=== PATIENT | female | born 1980 | race Caucasian/White ===

== ENCOUNTER 2019-11-17 15:40 | Outpatient (CLI) | payer MEDICAID, SELFPAY ==
[2019-11-17 16:19] LABS: Basophils % 0.7 %; Eosinophils # 0.1 10^3/uL (0.0-0.8); Eosinophils % 1.6 %; Hematocrit 34.7 % (37.0-47.0); Hemoglobin 11.5 g/dL (11.5-15.3); Lymphocytes # 1.3 10^3/uL (0.8-4.8); Lymphocytes % 28.5 %; Mean Corpuscular HGB Conc 33.1 g/dL (30.0-36.0); Mean Corpuscular Hemoglobin 27.1 pg (28.0-34.0); Mean Corpuscular Volume 81.6 fL (81-99); Mean Platelet Volume 10.1 fL (7.4-10.4); Monocytes # 0.4 10^3/uL (0.2-0.9); Neutrophils # 2.7 10^3/uL (1.8-7.7); Nucleated Red Blood Cells % 0 %; Platelet Count 243 10^3/cmm (130-400); Red Blood Count 4.25 10^6/uL (4.1-5.3); Red Cell Distribution Width 12.5 % (12.1-15.1); White Blood Count 4.4 10^3/uL (4.0-10.0)
[2019-11-17 17:12] LABS: Alanine Aminotransferase 14 U/L (0-33); Albumin Level 4.5 g/dL (3.5-5.2); Alkaline Phosphatase 79 IU/L (35-105); Anion Gap 15.2 (5-19); Aspartate Amino Transferase 15 U/L (0-32); Blood Urea Nitrogen 12 mg/dL (6-20); Calcium 9.5 mg/dL (8.5-10.5); Carbon Dioxide 27 mmol/L (22-29); Chloride 100 mmol/L (98-107); Chol HDL Ratio 3.71 mg/dL (0.0-4.40); Cholesterol 152 mg/dL (0-200); Globulin 2.7 g/dL (1.3-4.6); Glomerular Filtration Rate 80.7 mL/min (90-130); Glucose 113 mg/dL (65-115); HDL Cholesterol 41 mg/dL (60-100); LDL Cholesterol Calculated 95 mg/dL (50-129); LDL HDL Ratio 2.32 RATIO (0.00-3.22); Osmolality Calculated 283 mOsm/kg (285-295); Potassium 4.2 mmol/L (3.5-5.1); Sodium 138 mmol/L (136-145); Total Bilirubin 0.2 mg/dL (0.15-1.2); Total Protein 7.2 g/dL (6.6-8.7); Triglycerides 78 mg/dL (0-150)
== END 2019-11-17 15:41 | disposition home or self-care (01) ==
LOC: LAB 15:43
PROVIDERS: PCP Family Medicine; Visit Provider Nurse Practitioner Family
DX: I10 Essential (primary) hypertension (principal)
CPT/HCPCS: 80053; 80061; 84443; 85025

== ENCOUNTER → 2019-11-18 10:45 | Outpatient (BNVA) | payer BC, MEDICAID, SELFPAY | PROVIDERS: Family Provider Family Medicine; PCP Family Medicine | DX: F33.1 Major depressive disorder, recurrent, moderate (principal) | CPT/HCPCS: 83036 ==

== ENCOUNTER 2022-05-12 18:41 | Emergency (ER) | payer BC, MEDICAID, SELFPAY ==
[2022-05-12 18:44] VITALS: BP 162/98; PULSE 116; RESP 18; TEMP 36.7; O2SAT 100; BMI 35.9
--- NOTE | 2022-05-12 18:54 | ED_ITS ---
HPI - General Adult General: Chief complaint: General Medical Stated complaint: tongue swelling numb Time Seen by Provider: 05/12/22 18:54 History of Present Illness: 41-year-old female comes in today for complaints of numbness of the tongue. Patient appears nontoxic. Patient is managing secretions well. No respiratory difficulty noted. Patient has a history of substance abuse disorder and hypertension and anxiety. Review of Systems ENMT: Reports: other (Numbness of tongue) Physical Exam Const: COMMON NORMALS: alert HENMT: COMMON NORMALS: normocephalic HEAD & SCALP: normocephalic MOUTH: Normal oral and palatal mucosa present Neck/C-Spine: COMMON NORMALS: no lymphadenopathy Resp: COMMON NORMALS: normal respiratory effort and clear to auscultation bilaterally AUSCULTATION: clear to auscultation bilaterally Cardio: COMMON NORMALS: regular rate RATE: regular rate Extremity: COMMON NORMALS: normal to inspection Neuro: SENSORIUM/ORIENTATION: Yes alert Skin: COMMON NORMALS: turgor normal GENERAL SKIN EXAM: turgor normal Course Vital Signs: Vital signs: Vital Signs Temperature 98.0 F 05/12/22 18:44 Pulse Rate 116 H 05/12/22 18:44 Respiratory Rate 18 05/12/22 18:44 Blood Pressure 162/98 05/12/22 18:44 Pulse Oximetry 100 05/12/22 18:44 Oxygen Delivery Me thod 05/12/22 18:44 [facility] [place] - General Adult Medical Decision Making 41-year-old female comes in today with complaints of numbness to the tongue. On exam no swelling is noted to the tongue. Patient manages secretions well. Posterior pharynx is normal. No obvious swelling or abnormality is noted to the mouth. Vital signs are normal. Differential diagnosis includes but not limited to allergic reaction, anxiety, angioedema. Exam notes no significant abnormalities. Patient manages secretions well. Lungs are clear to auscultation. I believe this is more psychogenic. We will go ahead and prescribe Benadryl to use as needed per patient's request. Recommend return to the ER for worsening symptoms or new concerns. Discharge Plan Discharge Patient Disposition: Home Clinical Impression: Paresthesia Condition: Stable Prescriptions: New diphenhydramine HCl 50 mg capsule 50 mg PO Q6H PRN (Reason: allergy symptoms) Qty: 30 0RF No Action lisinopril 20 mg tablet 20 mg PO DAILY bupropion HCl 75 mg tablet 75 mg PO DAILY Rx Instructions: administer 6 hours apart prazosin 2 mg capsule 2 mg PO DAILY olanzapine 10 mg tablet 20 mg PO DAILY hydroxyzine pamoate 50 mg capsule 50 mg PO TID PRN clonidine HCl 0.1 mg tablet 0.1 mg PO TID PRN hydrochlorothiazide 25 mg tablet 25 mg PO DAILY Qty: 30 0RF clindamycin HCl 300 mg capsule 600 mg PO Q6H 7 Days Qty: 56 0RF Discharge Orders: Discharge ED (Routine); Ordered 05/12/22 Ordered By: David Gómez Referrals: Mary Amos MD [Primary Care Provider] - Discharge Diet: Usual diet Discharge Activity: Increase activity as tolerated Activity Restrictions/Additional Instructions: Home and rest. Drink plenty of fluids. Use medication as directed. Follow-up with primary care for further instruction. Return to ED for worsening symptoms such as increased shortness of breath, fever greater than 100.4, difficulty swallowing. Coding Level of Care Code ED Sluice Tender for Abdoulaye Crockett
[2022-05-12 19:26] VITALS: PULSE 103; RESP 18
[2022-05-12] MEDS: diphenhydrAMINE 50 mg Capsule PO (19:34)
== END 2022-05-12 19:50 | disposition home or self-care (01) ==
PROVIDERS: Emergency Provider Nurse Practitioner Family; Family Provider Family Medicine; PCP Family Medicine
DX: R20.2 Paresthesia of skin (principal)
CPT/HCPCS: 99283; Q0163

== ENCOUNTER 2022-10-12 12:57 | Emergency (ER) | payer BC, MEDICAID, SELFPAY ==
[2022-10-12 13:08] VITALS: BP 181/109; PULSE 94; RESP 16; TEMP 36.7; O2SAT 100
--- NOTE | 2022-10-12 13:14 | ED_ITS ---
HPI - Headache General: Chief Complaint: Headache Stated Complaint: high bp, headache Time Seen by Provider: 10/12/22 13:14 History of Present Illness: Ms Vance is a 42-year-old lady presenting to the emergency department for headache. She reports history of migraines. Symptoms began last night and were subacute. Pain 9 out of 10 primarily in the top of her head and sharp in michelle ure. She notes nausea, vomiting, denies numbness or tingling or other focal neurologic symptoms. She does have photosensitivity. Reports location is somewhat different than typical migraines. She is at [facility] abuse including IV drug use. She does report a history of hypertension and has noted blood pressure higher over the past few weeks. No other specific changes in health, exacerbating, or alleviating factors identified. Onset (ago): hour(s) Onset description: gradually Severity: moderate Exacerbating factors: light and noise Review of Systems General: Reports: 10 or more systems reviewed and unremarkable except in HPI and below PFSH ED PFSH: Medical History (Updated 10/23/22 @ 08:56 by Roberto López MD) Migraine Social History (Updated 10/23/22 @ 08:56 by Roberto López MD) Substance/Drug Use: former Physical Exam Const: COMMON NORMALS: patient oriented x3 and alert GENERAL APPEARANCE: cooperative and well developed HENMT: COMMON NORMALS: normocephalic and atraumatic HEAD & SCALP: normocephalic and atraumatic THROAT: posterior oropharynx normal Eye: COMMON NORMALS: conjunctivae normal CONJUNCTIVA: Yes conjunctivae normal SCLERA: sclerae normal Neck/C-Spine: COMMON NORMALS: supple and no meningeal signs GENERAL: Yes trachea midline Resp: COMMON NORMALS: normal respiratory effort EFFORT & INSPECTION: Yes able to speak in complete sentences Cardio: COMMON NORMALS: regular rate and regular rhythm RATE: regular rate RHYTHM: regular rhythm GI: COMMON NORMALS: Soft to palpation PALPATION: Yes Soft to palpation and No Tenderness to palpation present (GI) Extremity: GENERAL: Yes normal exam except as noted and No edema Neuro: COMMON NORMALS: patient oriented x3, CN's II-XII intact bilaterally, moves all extremities, no focal motor deficits and no sensory deficits noted SENSORIUM/ORIENTATION: Yes alert and No Orientation impaired MENINGEAL SIGNS: Yes no meningeal signs Psych: COMMON NORMALS: mental status grossly normal and Normal thought process present THOUGHT PROCESS: Normal thought process present Course Vital Signs: Vital signs: Vital Signs Temperature 98.0 F 10/12/22 13:08 Pulse Rate 94 10/12/22 13:08 Respiratory Rate 16 10/12/22 13:08 Blood Pressure 165/100 10/12/22 16:13 Pulse Oximetry 100 10/12/22 13:08 Oxygen Delivery Me thod Room Air 10/12/22 13:08 MDM - Headache Medical Decision Making 42-year-old lady presenting with headache and high blood pressure. Patient does have a history of headaches. No focal neurologic deficits or meningeal signs. Patient is uncomfortable however nontoxic. Labs notable for mild leukocytosis. No significant derangement. Negative hCG. Patient is currently on menstrual cycle which likely explains hematuria. Initially only mild improvement with treatment and therefore CT is appropriate. CT demonstrates no acute intracranial pathology. With repeat/additional treatment patient has significant improvement near complete resolution of headache. Most likely etiology of symptoms is headache. The results of ED evaluation were discussed with the patient including prescriptions and/or symptomatic cares (if applicable) including appropriate and responsible use, followup plan, and return precautions. The patient verbalized understanding and felt safe for discharge. Medical Records I reviewed the patient's medical records. Lab Data I reviewed the patient's lab results. 10/12/22 13:30 10/12/22 13:[address] 10/12/22 14:17 IMPRESSION: No acute intracranial abnormality. Laboratory Results WBC 12.7 10^3/uL (4.0-10.0) H 10/12/22 13:30 RBC 4.84 10^6/uL (4.1-5.3) 10/12/22 13:30 Hgb 13.2 g/dL (11.5-15.3) 10/12/22 13:30 Hct 40.9 % (37.0-47.0) 10/12/22 13:30 MCV 84.5 fl (81-99) 10/12/22 13:30 MCH 27.3 pg (28.0-34.0) L 10/12/22 13:30 MCHC 32.3 g/dL (30.0-36.0) 10/12/22 13:30 RDW 13.6 % (12.1-15.1) 10/12/22 13:30 Plt Count 311 10^3/cmm (130-400) 10/12/22 13:30 MPV 8.9 fL (7.4-10.4) 10/12/22 13:30 Neut % (Auto) 91.2 % 10/12/22 13:30 Lymph % (Auto) 6.1 % 10/12/22 13:30 [place] % (Auto) 1.9 % 10/12/22 13:30 Eos % (Auto) 0.1 % 10/12/22 13:30 Baso % (Auto) 0.2 % 10/12/22 13:30 Neut # (Auto) 11.58 10^3/uL (1.8-7.7) H 10/12/22 13:30 Lymph # (Auto) 0.8 10^3/uL (0.8-4.8) 10/12/22 13:30 [place] # (Auto) 0.2 10^3/uL (0.2-0.9) 10/12/22 13:30 Eos # (Auto) 0.0 10^3/uL (0.0-0.8) 10/12/22 13:30 Baso # (Auto) 0.0 10^3/uL (0.0-0.1) 10/12/22 13:30 Nucleated RBC % (auto) 0 % 10/12/22 13: Nucleated RBCs # 0.0 /100WBC 10/12/22 13:30 Sodium 136 mmol/L (136-145) 10/12/22 13:30 Potassium 4.4 mmol/L (3.5-5.1) 10/12/22 13:30 Chloride 102 mmol/L (98-107) 10/12/22 13:30 Carbon Dioxide 25 mmol/L (22-29) 10/12/22 13:30 Anion Gap 13.4 (5-19) 10/12/22 13:30 BUN 12 mg/dL (6-20) 10/12/22 13:30 Creatinine 0.5 mg/dL (0.5-0.9) 10/12/22 13:30 GFR Calculation 136.6 mL/min (90-130) H 10/12/22 13:30 Glucose 125 mg/dL (65-115) H 10/12/22 13:30 Calculated Osmolality 283 mOsm/kg (285-295) L 10/12/22 13:30 Calcium 9.1 mg/dL (8.5-10.5) 10/12/22 13:30 Total Bilirubin 0.4 mg/dL (0.15-1.2) 10/12/22 13:30 AST 15 U/L (0-32) 10/12/22 13:30 ALT 11 U/L (0-33) 10/12/22 13:30 Alkaline Phosphatase 76 U/L (35-105) 10/12/22 13:30 Total Protein 7.6 g/dL (6.6-8.7) 10/12/22 13: Albumin 4.5 g/dL (3.5-5.2) 10/12/22 13: Globulin 3.1 g/dL (1.3-4.6) 10/12/22 13:30 HCG, Qual Negative (Negative) 10/12/22 13:30 Urine Color Red (Yellow) 10/12/22 15:06 Urine Appearance [place] (CLEAR) A 10/12/22 15:06 Urine pH 7 (5-7) 10/12/22 15:06 Ur Specific [place] 1.015 (1.005-1.030) 10/12/22 15:06 Urine Protein 2+ (Negative) H 10/12/22 15:06 Urine Glucose (UA) Trace (Normal) H 10/12/22 15:06 Urine Ketones Negative (Negative) 10/12/22 15:06 Urine Blood 4+ (Negative) H 10/12/22 15:06 Urine Nitrate Negative (Negative) 10/12/22 15:06 Urine Bilirubin Neg (Negative) 10/12/22 15:06 Urine Urobilinogen Norm mg/dL (Negative) 10/12/22 15:06 Ur Leukocyte Esterase Trace (Negative) H 10/12/22 15:06 Urine RBC >100 /hpf (0-2) H 10/12/22 15:06 Urine WBC 10-15 /hpf (0-5) H 10/12/22 15:06 Ur Squamous Epith Cells 0-4 /hpf (0-5) H 10/12/22 15:06 Amorphous Sediment Not Reportable 10/12/22 15:06 Urine Bacteria None /hpf (NONE) 10/12/22 15:06 Urine Mucus 1+ /hpf 10/12/22 15:06 Discharge Plan Discharge Patient Disposition: Home Clinical Impression: Headache Condition: Stable Prescriptions: New Reglan 10 mg tablet 10 mg PO Q6H PRN (Reason: headache) Qty: 20 0RF No Action prazosin 2 mg capsule 4 mg PO BEDTIME naltrexone 50 mg Tablet 25 mg PO BID sertraline 100 mg Tablet 100 mg PO DAILY hydroxyzine pamoate 50 mg Capsule 50 - 100 mg PO BEDTIME PRN (Reason: Muscle Spasm) baclofen 10 mg Tablet 10 mg PO TID PRN (Reason: Spasms) lisinopril 10 mg Tablet 20 mg PO QAM losartan 25 mg Tablet 25 mg PO DAILY Remeron 15 mg Tablet 15 mg PO BEDTIME Discharge Orders: Discharge ED (Routine); Ordered 10/12/22 Ordered By: Roberto López Discharge Diet: Usual diet Discharge Activity: Resume usual activity Patient Instructions: Migraine Headache (ED), Acute Headache (ED) Activity Restrictions/Additional Instructions: Thank you for visiting the emergency department. You were seen and evaluated for headache. The exact cause of your symptoms is unclear but likely related to underlying headache disorder. We are pleased that you had improvement in the emergency department. I will prescribe Reglan which you can take with Benadryl, Tylenol and/or ibuprofen. Please also ensure that you are staying hydrated. For Tylenol and ibuprofen or other NSAIDs please do not exceed the daily recommended dosage as listed on the packaging and please keep in mind that many namebrand medications contain the same active ingredients. Please avoid these medications if previously instructed to do so by another physician due to other underlying medical condition. Please follow-up with a primary care provider. Return to the emergency department for fevers, neck stiffness, uncontrolled pain, any new neurologic symptoms, or anything else that you are concerned about and feel needs Emergency Department evaluation. Coding Level of Care Code ED Valve Mechanic for Abdoulaye Crockett
[2022-10-12] MEDS: sodium chloride 0.9% 1,000 ML 999 ML IV (13:45)
[2022-10-12] MEDS: diphenhydrAMINE 50 mg/mL SDV 1mL 25 MG IVP (13:45)
[2022-10-12] MEDS: metoclopramide 5 mg/mL SDV 2 mL 10 MG IVP (13:48)
[2022-10-12] MEDS: ketorolac 30 mg/mL INJ 15 MG IVP (13:49)
[2022-10-12 13:58] LABS: Basophils % 0.2 %; Eosinophils % 0.1 %; Hematocrit 40.9 % (37.0-47.0); Hemoglobin 13.2 g/dL (11.5-15.3); Lymphocytes # 0.8 10^3/uL (0.8-4.8); Lymphocytes % 6.1 %; Mean Corpuscular HGB Conc 32.3 g/dL (30.0-36.0); Mean Corpuscular Hemoglobin 27.3 pg (28.0-34.0); Mean Corpuscular Volume 84.5 fl (81-99); Mean Platelet Volume 8.9 fL (7.4-10.4); Monocytes # 0.2 10^3/uL (0.2-0.9); Monocytes % 1.9 %; Neutrophils # 11.58 10^3/uL (1.8-7.7); Neutrophils % 91.2 %; Nucleated Red Blood Cells % 0 %; Platelet Count 311 10^3/cmm (130-400); Red Blood Count 4.84 10^6/uL (4.1-5.3); Red Cell Distribution Width 13.6 % (12.1-15.1); White Blood Count 12.7 10^3/uL (4.0-10.0)
[2022-10-12 14:13] LABS: Alanine Aminotransferase 11 U/L (0-33); Albumin Level 4.5 g/dL (3.5-5.2); Alkaline Phosphatase 76 U/L (35-105); Anion Gap 13.4 (5-19); Aspartate Amino Transferase 15 U/L (0-32); Blood Urea Nitrogen 12 mg/dL (6-20); Calcium 9.1 mg/dL (8.5-10.5); Carbon Dioxide 25 mmol/L (22-29); Chloride 102 mmol/L (98-107); Creatinine Clr Calc Pharmacy 169.6864; Globulin 3.1 g/dL (1.3-4.6); Glomerular Filtration Rate 136.6 mL/min (90-130); Glucose 125 mg/dL (65-115); Osmolality Calculated 283 mOsm/kg (285-295); Potassium 4.4 mmol/L (3.5-5.1); Sodium 136 mmol/L (136-145); Total Bilirubin 0.4 mg/dL (0.15-1.2); Total Protein 7.6 g/dL (6.6-8.7)
[2022-10-12 14:15] LABS: HCG, Serum Qual Negative (Negative)
--- NOTE | 2022-10-12 14:17 | CTR_ITS ---
PROCEDURE INFORMATION: Exam: CT Head Without Contrast Exam date and time: 10/12/2022 3:13 PM Age: 42 years old Clinical indication: Pain; Headache; Migraine TECHNIQUE: Imaging protocol: Computed tomography of the head without contrast. Radiation optimization: All CT scans at this facility use at least one of these dose optimization techniques: automated exposure control; mA and/or kV adjustment per patient size (includes targeted exams where dose is matched to clinical indication); or iterative reconstruction. REPORTING DATA: Count of CT and Cardiac NM exams in prior 12 months: This patient has received 0 known CTs and 0 known cardiac nuclear medicine studies in the 12 months prior to the current study. COMPARISON: No relevant prior studies available. RADIATION DOSE METRICS: Total DLP (mGy-cm): 1086.58 FINDINGS: Brain: Normal. No hemorrhage. Unremarkable white matter. No mass effect. Cerebral ventricles: No ventriculomegaly. Paranasal sinuses: Visualized sinuses are unremarkable. No fluid levels. Mastoid air cells: Visualized mastoid air cells are well aerated. Bones/joints: Unremarkable. No acute fracture. Soft tissues: Unremarkable. CT/CT head wo con* [id number] IMPRESSION: No acute intracranial abnormality.
[2022-10-12] MEDS: dihydroergotamine 1 mg/mL Inj IVP (14:56)
[2022-10-12 16:12] LABS: Glucose Urine UA Trace (Normal); Ketones Urine Negative (Negative); Protein Urine 2+ (Negative); Specific Gravity, Urine 1.015 (1.005-1.030); Urine Color Red (Yellow); pH Urine 7 (5-7)
[2022-10-12 16:13] VITALS: BP 165/100
[2022-10-12 16:13] LABS: Add Urine Culture? No; Add Urine Microscopic? YES; Bilirubin Urine Neg (Negative); Blood Urine 4+ (Negative); Leukocyte Esterase Urine Trace (Negative); Mucus Urine 1+ /hpf; Nitrate Urine Negative (Negative); RBC Urine >100 /hpf (0-2); Squamous Epithelial Cell Urine 0-4 /hpf (0-5); Urobilinogen Urine Norm (Negative)
--- NOTE | 2022-10-19 15:26 | DCPLANNER ---
TCM called patient due to no primary care physician - no answer at this time.
== END 2022-10-12 16:14 | disposition home or self-care (01) ==
PROVIDERS: Emergency Provider Emergency Medicine
DX: R51.9 Headache, unspecified (principal)
CPT/HCPCS: 70450; 80053; 81001; 84703; 85025; 96365; 96375; 99284; J1110; J1200; J1885; J2765; J3475; J7030

== ENCOUNTER 2024-03-03 10:00 | Outpatient (CLI) | payer BC, MEDICAID, SELFPAY ==
--- NOTE | 2024-03-03 10:09 | MM_ITS ---
WS: [id number] SCREENING DIGITAL TOMOSYNTHESIS MAMMOGRAM WITH CAD HISTORY: Z12.31 Encounter for a screening mammo for b/c COMPARISON: None available. Bilateral CC and MLO with tomosynthesis views submitted. Synthetic mammography reviewed. Computer aid ed detection analyzed. Breast composition: There are scattered areas of fibroglandular density. No suspicious masses, microc alcifications or architectural distortion. Benign calcifications posterior medial LEFT breast. MM/MM scr BI tomosynthesis [id number] IMPRESSION: BI-RADS: 2 - Benign. FOLLOW UP: 1 Year Follow-up
== END 2024-03-03 10:01 | disposition home or self-care (01) ==
LOC: RAD 10:01
PROVIDERS: Visit Provider Advanced Practice Midwife
DX: Z12.31 Encounter for screening mammogram for malignant neoplasm of breast (principal); R92.323 Mammographic fibroglandular density, bilateral breasts; R92.1 Mammographic calcification found on diagnostic imaging of breast
CPT/HCPCS: 77063; 77067

== ENCOUNTER 2024-07-21 12:06 | Outpatient (CLI) | payer BC, MEDICAID, SELFPAY ==
--- NOTE | 2024-07-21 12:12 | MR_ITS ---
WS: [id number] MRI HEAD WITHOUT CONTRAST TECHNIQUE: Sagittal T1, T2 axial, T2 axial FLAIR, axial and coronal T1 images, axial susceptibility weighted imaging, axial diffusion weighted images, and coronal T2 images were obtained. CLINICAL INFORMATION: HEADACHE SYNDROME COMPARISON: CT 10/12/2022 FINDINGS: No evidence of restricted diffusion to suggest acute ischemia. Ventricular system and basal cisterns are patent. A few tiny foci of T2 hyperintensity in the periventricular and subcortical white matter can be seen with migraine headaches. Normal posterior fossa. Normal vascular flow voids at the skull base. No extra-axial fluid collections. No evidence of mass or mass effect. Retention cysts in the maxillary sinuses. Mild mucosal thickening RIGHT mastoid air cells. Normal optic chiasm and pituitary infundibulum. Temporal lobes and hippocampal formations are normal in appearance. No hemosiderin on the susceptibly weighted images. No other suspicious findings. MR/MR head wo con* [id number] IMPRESSION: 1. No evidence of restricted diffusion to suggest acute ischemia. 2. A few tiny foci of T2 hyperintensity in the periventricular and subcortical white matter can be seen with migraine headaches. 3. No other suspicious intracranial signal abnormalities. 4. Retention cysts in the maxillary sinuses. Mucosal thickening RIGHT mastoid air cells. 5. No hemosiderin on the susceptibility weighted images.
== END 2024-07-21 12:07 | disposition home or self-care (01) ==
PROVIDERS: Visit Provider Internal Medicine
DX: G44.51 Hemicrania continua (principal); Z82.3 Family history of stroke; M27.40 Unspecified cyst of jaw; R93.0 Abnormal findings on diagnostic imaging of skull and head, not elsewhere classified
CPT/HCPCS: 70551